=== PATIENT | male | born 1955 | race Two or more races ===

== ENCOUNTER 2016-10-01 19:03 | Emergency (ER) | payer SELFPAY ==
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
[2016-10-01] MEDS ORDERED: HYDROCODONE/ACETAMINOPHEN 5-325 MG 6 TAB/DSPK PO PRN (22:41)
[2016-10-02 00:53] VITALS: BP 122/73
== END 2016-10-01 23:55 | disposition home or self-care (01) ==
LOC: ER 19:03
DX: M54.2 Cervicalgia (principal); M79.641 Pain in right hand; R07.9 Chest pain, unspecified; M25.561 Pain in right knee; F17.200 Nicotine dependence, unspecified, uncomplicated; I10 Essential (primary) hypertension; J44.9 Chronic obstructive pulmonary disease, unspecified
CPT/HCPCS: 99283

== ENCOUNTER 2016-10-14 12:51 | Emergency (ER) | payer SELFPAY ==
--- NOTE | 2016-10-14 13:21 | ER Document Report ---
ED Medical Screen (RME) - General Chief Complaint: Leg Swelling Stated Complaint: RIGHT LEG SWELLING Time seen by provider: 13:10 Mode of Arrival: Wheelchair Information source: Patient Notes: 60-year-old male presents to ED for pain in both legs and back states he was seen 15 days ago and now both legs are swollen. Both legs have been swollen right larger than left since Thursday. Denies cardiac history or any history of DVTs. States his pain is a 5 out of 5. Right leg pain and as he walks it hurts his back. Discussed symptoms with Dr. Hernandes and will order a Doppler and blood work. Interperter [id number] I have greeted and performed a rapid initial assessment of this patient. A comprehensive ED assessment and evaluation of the patient, analysis of test results and completion of medical decision making process will be conducted by an additional ED providers. TRAVEL OUTSIDE OF THE [place] IN LAST 30 DAYS: No - Related Data Allergies/Adverse Reactions: No Known Allergies Allergy (Verified 12/12/14 15:46) Past Medical History - Past Medical History Cardiac Medical History: Reports: Hx Hypertension Pulmonary Medical History: Reports: Hx COPD Denies: Hx Tuberculosis Neurological Medical History: Denies: Hx Cerebrovascular Accident, Hx Seizures Renal/ Medical History: Denies: Hx Peritoneal Dialysis Past Surgical History: Reports: Hx Appendectomy, Hx Bowel Surgery - tortion, Hx Testicular Surgery - torsion - Immunizations Hx Diphtheria, Pertussis, Tetanus Vaccination: Yes - 12/15/14 Physical Exam - Vital signs Vitals: Temp Pulse Resp BP Pulse Ox 97.7 F 98 20 122/77 96 10/14/16 13:04 10/14/16 13:04 10/14/16 13:04 10/14/16 13:04 10/14/16 13:04 Course - Vital Signs Vital signs: Temp Pulse Resp BP Pulse Ox 97.7 F 98 20 122/77 96 10/14/16 13:04 10/14/16 13:04 10/14/16 13:04 10/14/16 13:04 10/14/16 13:04
[2016-10-14 14:05] LABS: ABSOLUTE EOSINOPHILS # (AUTO) 0.1 10^3/uL (0.0-0.6); ABSOLUTE LYMPHOCYTES (AUTO) 1.6 10^3/uL (0.5-4.7); ABSOLUTE MONOCYTES (AUTO) 0.9 10^3/uL (0.1-1.4); ABSOLUTE NEUT (AUTO) 4.3 10^3/uL (1.7-8.2); BASOPHILS % (AUTO) 0.3 % (0-2); HEMATOCRIT 36.7 % (37.9-51.0); HEMOGLOBIN 12.1 g/dL (13.5-17.0); HGB HCT DIFFERENCE -0.4; LYMPHOCYTES % (AUTO) 22.5 % (13-45); MEAN CORPUSCULAR HEMOGLOBIN 30.2 pg (27.0-33.4); MEAN CORPUSCULAR HGB CONC 32.8 g/dL (32.0-36.0); MEAN CORPUSCULAR VOLUME 92 fl (80-97); RED BLOOD COUNT 3.99 10^6/uL (4.35-5.55); RED CELL DISTRIBUTION WIDTH 14.7 % (11.5-14.0); SEGMENTED NEUTROPHILS % (AUTO) 62.2 % (42-78)
[2016-10-14 14:13] LABS: PROTHROMBIN TIME 13.4 SEC (11.4-15.4)
[2016-10-14 14:27] LABS: ALANINE AMINOTRANSFERASE 31 U/L (21-72); ALBUMIN 4.1 g/dL (3.5-5.0); ALKALINE PHOSPHATASE 103 U/L (38-126); ANION GAP 11 (5-19); ASPARTATE AMINO TRANSFERASE 42 U/L (17-59); BILIRUBIN,TOTAL 0.7 mg/dL (0.2-1.3); BLOOD UREA NITROGEN 4 mg/dL (7-20); CALCIUM 9.2 mg/dL (8.4-10.2); CARBON DIOXIDE 26 mmol/L (22-30); CHLORIDE 95 mmol/L (98-107); CREATININE RESULT 0.64 mg/dL (0.52-1.25); GLUCOSE 80 mg/dL (75-110); POTASSIUM 3.5 mmol/L (3.6-5.0); SODIUM 132.3 mmol/L (137-145); TOTAL PROTEIN 6.8 g/dL (6.3-8.2)
--- NOTE | 2016-10-14 15:36 | ER Document Report ---
ED General - General Mode of Arrival: Wheelchair Information source: Patient TRAVEL OUTSIDE OF THE [place] IN LAST 30 DAYS: No - HPI Onset: Other - see narrative <JUSTIN BLACK - Last Filed: 10/14/16 18:44> <RUSSELL MAX - Last Filed: 10/14/16 18:51> - General Chief Complaint: Foot Pain Stated Complaint: RIGHT LEG SWELLING Notes: Patient is a 60 year old Wallisian speaking male that is being translated by Monica that presents to the emergency department today with complaints of knee pain bilaterally and low back pain. Patient states he also has had lower extremity swelling. Patient adds that he is homeless. Patient states that he is from [place]. Patient states he was living in a homeless usp however they will not let him return when he gets off work because it is too late in the day and they close the doors. Patient states his low back pain radiates down his right leg past his knee. Patient states he is on his feet a lot during the day at work and he noticed that his swelling gets worse after being on his feet for extended periods of time. Patient states he has had the above mentioned symptoms for 15 days. (JUSTIN BLACK) - Related Data Allergies/Adverse Reactions: No Known Allergies Allergy (Verified 10/14/16 13:20) Past Medical History - General Information source: Patient - Social History Smoking Status: Current Every Day Smoker Cigarette use (# per day): Yes Frequency of alcohol use: Heavy Drug Abuse: None Lives with: Family Family History: Reviewed & Not Pertinent Patient has suicidal ideation: No Patient has homicidal ideation: No - Past Medical History Cardiac Medical History: Reports: Hx Hypertension Pulmonary Medical History: Reports: Hx COPD Past Surgical History: Reports: Hx Appendectomy, Hx Bowel Surgery - torsion, Hx Testicular Surgery - torsion - Immunizations Hx Diphtheria, Pertussis, Tetanus Vaccination: Yes - 12/15/14 <JUSTIN BLACK - Last Filed: 10/14/16 18:44> Review of Systems - Review of Systems Constitutional: No symptoms reported EENT: No symptoms reported Cardiovascular: No symptoms reported Respiratory: No symptoms reported Gastrointestinal: No symptoms reported Genitourinary: No symptoms reported Male Genitourinary: No symptoms reported Musculoskeletal: See HPI, Back pain, Joint pain - Knee, R>L Skin: No symptoms reported Hematologic/Lymphatic: No symptoms reported Neurological/Psychological: No symptoms reported -: Yes All other systems reviewed and negative <JUSTIN BLACK - Last Filed: 10/14/16 18:44> Physical Exam - General General appearance: Alert, Other - Disheveled, unkempt, smells of tobacco smoke - HEENT Head: Normocephalic, Atraumatic Eyes: Normal Conjunctiva: Normal Extraocular movements intact: Yes - Respiratory Respiratory status: No respiratory distress Breath sounds: Normal - Cardiovascular Rhythm: Regular Heart sounds: Normal auscultation Murmur: No - Abdominal Inspection: Normal Distension: No distension Tenderness: Nontender - Back Back: Normal, Nontender - Extremities General upper extremity: Normal inspection, Nontender, Normal ROM General lower extremity: Edema - bilaterally, Normal ROM - Neurological Neuro grossly intact: Yes Cognition: Normal Speech: Normal - Psychological Associated symptoms: Normal affect, Normal mood - Skin Skin Temperature: Warm Skin Moisture: Dry Skin Color: Normal <JUSTIN BLACK - Last Filed: 10/14/16 18:44> Course - Laboratory Result Diagrams: 10/14/16 13:35 10/14/16 13:35 <JUSTIN BLACK - Last Filed: 10/14/16 18:44> - Laboratory Result Diagrams: 10/14/16 13:35 10/14/16 13:35 <RUSSELL MAX - Last Filed: 10/14/16 18:51> - Vital Signs Vital signs: Temp Pulse Resp BP Pulse Ox 97.7 F 98 20 122/77 96 10/14/16 13:04 10/14/16 13:04 10/14/16 13:04 10/14/16 13:04 10/14/16 13:04 (JUSTIN BLACK) (RUSSELL MAX) - Laboratory Laboratory results interpreted by me: 10/14/16 10/14/16 13:35 13:35 RBC 3.99 L Hgb 12.1 L Hct 36.7 L RDW 14.7 H Sodium 132.3 L Potassium 3.5 L Chloride 95 L BUN 4 L (JUSTIN BLACK) (RUSSELL MAX) Discharge <JUSTIN BLACK - Last Filed: 10/14/16 18:44> <RUSSELL MAX - Last Filed: 10/14/16 18:51> - Discharge Clinical Impression: Lower extremity edema Qualifiers: Laterality: bilateral Qualified Code(s): R60.0 - Localized edema Condition: Stable Disposition: HOME, SELF-CARE Additional Instructions: Edema, Peripheral You have swelling in your legs. This is called peripheral edema. It can be caused by "leaky capillaries," inflammation, disease of the leg veins, or excess salt and water in your body. Edema may be a sign of heart, kidney, or liver disease. A medical evaluation can determine if there is a serious underlying cause for your edema. Avoid prolonged standing. If you must sit for a long time, occasionally get up and walk around or elevate your legs. Support stockings can be helpful in limiting swelling. Often diuretic or water pills are used to remove excess salt and water from your body. Call the doctor or return if you develop increased swelling, pain, or redness, shortness of breath, chest pain, or any other significant change. Referrals: [facility] [Provider Group] - Follow up in 3-5 days (in 2-3 days return to er sooner for increasing worsening or new symptoms) Print Language: Wallisian Scribe Documentation - Scribe Written by Sean:: Sean Carlos, 1839 10/14/16 acting as scribe for :: David <JUSTIN BLACK - Last Filed: 10/14/16 18:44>
--- NOTE | 2016-10-14 16:48 | XCELERA REPORT ---
[address] [address] Lower Extremity Venous Evaluation Name: DANIELE RAMIREZ Age: 60 yrs Gender: Male : 1955 Patient Status: Preadmit Patient Location: ER Study Date: 10/14/2016 02:40 PM Procedure: Color flow and duplex imaging bilaterally of the veins of the lower extremities as well as the Common Femoral veins. Reason For Study: swelling both legs right greater than left Ordering Physician: KENYATTA RIVERA Performed By: Brandi Awad Right Sided Venous Evaluation Normal vessel filling wall to wall, compression and augmentation as well as Colour flow down to the infrageniculate veins. Left Sided Venous Evaluation Normal vessel filling wall to wall, compression and augmentation as well as Colour flow down to the infrageniculate veins. Critical Findings Called in to the ER at about 1700. Interpretation Summary No duplex evidence of DVT or obstruction in the bilateral lower extremities. : KENYATTA RIVERA > Terrell Mcrae
[2016-10-14 19:42] VITALS: BP 133/74
== END 2016-10-14 19:33 | disposition home or self-care (01) ==
LOC: ER 12:51
DX: R60.0 Localized edema (principal); M25.561 Pain in right knee; M25.562 Pain in left knee; M54.5 Low back pain; I10 Essential (primary) hypertension; J44.9 Chronic obstructive pulmonary disease, unspecified; F17.210 Nicotine dependence, cigarettes, uncomplicated; Z59.0 Homelessness
CPT/HCPCS: 36415; 71010; 80053; 83880; 85025; 85610; 85730; 93970; 99283

== ENCOUNTER 2016-10-17 10:32 | Emergency (ER) | payer SELFPAY ==
--- NOTE | 2016-10-17 10:54 | ER Document Report ---
ED Medical Screen (RME) - General Stated Complaint: LEG PAIN Time seen by provider: 10:52 Mode of Arrival: Wheelchair Information source: Patient Notes: 60-year-old male presents to ED for erythema to both lower legs. I have greeted and performed a rapid initial assessment of this patient. A comprehensive ED assessment and evaluation of the patient, analysis of test results and completion of medical decision making process will be conducted by an additional ED providers. TRAVEL OUTSIDE OF THE [place] IN LAST 30 DAYS: No - Related Data Allergies/Adverse Reactions: No Known Allergies Allergy (Verified 10/17/16 10:52) Past Medical History - Past Medical History Cardiac Medical History: Reports: Hx Hypertension Pulmonary Medical History: Reports: Hx COPD Denies: Hx Tuberculosis Neurological Medical History: Denies: Hx Cerebrovascular Accident, Hx Seizures Renal/ Medical History: Denies: Hx Peritoneal Dialysis Past Surgical History: Reports: Hx Appendectomy, Hx Bowel Surgery - torsion, Hx Testicular Surgery - torsion - Immunizations Hx Diphtheria, Pertussis, Tetanus Vaccination: Yes - 12/15/14
[2016-10-17 11:22] LABS: ABSOLUTE EOSINOPHILS # (AUTO) 0.2 10^3/uL (0.0-0.6); ABSOLUTE LYMPHOCYTES (AUTO) 1.8 10^3/uL (0.5-4.7); ABSOLUTE MONOCYTES (AUTO) 0.8 10^3/uL (0.1-1.4); ABSOLUTE NEUT (AUTO) 2.9 10^3/uL (1.7-8.2); BASOPHILS % (AUTO) 0.5 % (0-2); EOSINOPHILS % (AUTO) 3.6 % (0-6); HEMATOCRIT 38.5 % (37.9-51.0); HEMOGLOBIN 12.5 g/dL (13.5-17.0); LYMPHOCYTES % (AUTO) 31.6 % (13-45); MEAN CORPUSCULAR HEMOGLOBIN 30.3 pg (27.0-33.4); MEAN CORPUSCULAR HGB CONC 32.5 g/dL (32.0-36.0); MEAN CORPUSCULAR VOLUME 93 fl (80-97); RED BLOOD COUNT 4.13 10^6/uL (4.35-5.55); RED CELL DISTRIBUTION WIDTH 15.3 % (11.5-14.0); SEGMENTED NEUTROPHILS % (AUTO) 50.3 % (42-78); WHITE BLOOD COUNT 5.8 10^3/uL (4.0-10.5)
[2016-10-17 11:47] LABS: ALANINE AMINOTRANSFERASE 25 U/L (21-72); ALBUMIN 3.8 g/dL (3.5-5.0); ALKALINE PHOSPHATASE 96 U/L (38-126); ANION GAP 11 (5-19); ASPARTATE AMINO TRANSFERASE 29 U/L (17-59); BILIRUBIN,TOTAL 0.6 mg/dL (0.2-1.3); BLOOD UREA NITROGEN 5 mg/dL (7-20); CALCIUM 9.5 mg/dL (8.4-10.2); CARBON DIOXIDE 29 mmol/L (22-30); CHLORIDE 97 mmol/L (98-107); CREATININE RESULT 0.75 mg/dL (0.52-1.25); GLUCOSE 79 mg/dL (75-110); LIPASE 89.9 U/L (23-300); POTASSIUM 4.1 mmol/L (3.6-5.0); SODIUM 136.6 mmol/L (137-145); TOTAL PROTEIN 7.1 g/dL (6.3-8.2)
[2016-10-17] MEDS ORDERED: HYDROCHLOROTHIAZIDE 25 MG TABLET PO ONE (13:05)
--- NOTE | 2016-10-17 13:12 | ER Document Report ---
ED General - General Chief Complaint: Leg Pain Stated Complaint: LEG PAIN Mode of Arrival: Wheelchair Information source: Patient TRAVEL OUTSIDE OF THE [place] IN LAST 30 DAYS: No - Related Data Allergies/Adverse Reactions: No Known Allergies Allergy (Verified 10/17/16 10:52) Past Medical History - General Information source: Patient - Social History Smoking Status: Current Every Day Smoker Chew tobacco use (# tins/day): No Frequency of alcohol use: None Drug Abuse: None Family History: Reviewed & Not Pertinent Patient has suicidal ideation: No Patient has homicidal ideation: No - Past Medical History Cardiac Medical History: Reports: Hx Hypertension Pulmonary Medical History: Reports: Hx COPD Denies: Hx Tuberculosis Neurological Medical History: Denies: Hx Cerebrovascular Accident, Hx Seizures Renal/ Medical History: Denies: Hx Peritoneal Dialysis Past Surgical History: Reports: Hx Appendectomy, Hx Bowel Surgery - torsion, Hx Testicular Surgery - torsion - Immunizations Hx Diphtheria, Pertussis, Tetanus Vaccination: Yes - 12/15/14 Review of Systems - Review of Systems Constitutional: No symptoms reported EENT: No symptoms reported Cardiovascular: Edema Respiratory: No symptoms reported. denies: Short of breath Gastrointestinal: No symptoms reported Genitourinary: No symptoms reported Musculoskeletal: No symptoms reported Skin: No symptoms reported Neurological/Psychological: No symptoms reported Physical Exam - Vital signs Vitals: Temp Pulse Resp BP Pulse Ox 97.8 F 79 18 137/78 H 98 10/17/16 10:51 10/17/16 10:51 10/17/16 10:51 10/17/16 10:51 10/17/16 10:51 Interpretation: Normal - General General appearance: Appears well, Alert In distress: None - HEENT Head: Normocephalic Eyes: Normal Conjunctiva: Normal - Respiratory Respiratory status: No respiratory distress Breath sounds: Normal. No: Rales - Cardiovascular Rhythm: Regular - Abdominal Inspection: Normal Distension: No distension - Back Back: Normal - Extremities General upper extremity: Normal inspection General lower extremity: Edema - 1+, BILATERAL, Normal temperature, Normal weight bearing, Other - NO OPEN WOUNDS. No: Normal inspection - Neurological Neuro grossly intact: Yes Cognition: Normal Orientation: AAOx4 - Psychological Associated symptoms: Normal affect, Normal mood - Skin Skin Temperature: Warm Skin Moisture: Dry Skin Color: Normal Skin Turgor: Elastic Course - Vital Signs Vital signs: Temp Pulse Resp BP Pulse Ox 97.9 F 87 18 115/63 97 10/17/16 13:24 10/17/16 13:24 10/17/16 10:51 10/17/16 13:24 10/17/16 13:24 - Laboratory Result Diagrams: 10/17/16 10:55 10/17/16 10:55 Laboratory results interpreted by me: 10/17/16 10/17/16 10:55 10:55 RBC 4.13 L Hgb 12.5 L RDW 15.3 H Monocytes % 14.0 H Sodium 136.6 L Chloride 97 L BUN 5 L Discharge - Discharge Clinical Impression: Edema Qualifiers: Edema type: localized Qualified Code(s): R60.0 - Localized edema Condition: Stable Disposition: HOME, SELF-CARE Instructions: Dependent Edema ([facility]) Additional Instructions: Your evaluation today in the emergency department shows that you have edema, or swelling, of the legs. There is no evidence of an underlying heart, liver, or kidney problem. You should avoid all salt in your diet. You should avoid prolonged sitting or standing. WHEN YOU ARE SITTING OR LYING DOWN, TRY TO ELEVATE YOUR LEGS ABOVE THE LEVEL OF YOUR HEART. This will help gravity drain the fluid out of the legs. Follow[facility]up with [facility] as scheduled. Referrals: [facility] [Provider Group] - Follow up as needed Print Language: Syriac
[2016-10-17 13:25] VITALS: BP 115/63
== END 2016-10-17 13:26 | disposition home or self-care (01) ==
LOC: ER 10:32
DX: R60.0 Localized edema (principal); F17.200 Nicotine dependence, unspecified, uncomplicated; I10 Essential (primary) hypertension; J44.9 Chronic obstructive pulmonary disease, unspecified
CPT/HCPCS: 36415; 80053; 83690; 85025; 99283

== ENCOUNTER 2017-02-18 12:13 | Emergency (ER) | payer SELFPAY ==
[2017-02-18] MEDS ORDERED: MORPHINE SULFATE 10 MG/ML INJ IM ONE (12:44)
--- NOTE | 2017-02-18 12:50 | ER Document Report ---
ED Neck/Back Problem - General Chief Complaint: Low Back Pain Stated Complaint: BACK PAIN Time Seen by Provider: 02/18/17 12:37 Notes: 61 yo male c/o low back back radiating down right leg x 5 days. pt has hx/o chronic low back pain with sciatica. this pain is familiar to patient in location but more severe in intensity. denies fever, bowel/bladder change, paresthesias. no recent injury. no abdominal pain, n/v, chest pain or shortness of breath TRAVEL OUTSIDE OF THE [place] IN LAST 30 DAYS: No - HPI Patient complains to provider of: Pain Onset: Chronic Timing: Constant Quality of pain: Burning, Sharp Pain Level: 5 Recent injury: No Associated symptoms: Like prior neck/back pain, Radiation to leg - right. denies: Chest pain, Abdominal pain, Fever, Incontinence, Motor loss, Unable to urinate Exacerbated by: Other - any movement Relieved by: Nothing Similar symptoms previously: Yes Recently seen / treated by doctor: No - Related Data Allergies/Adverse Reactions: No Known Allergies Allergy (Verified 10/17/16 10:52) Past Medical History - General Information source: Relative - daughter interpretting for patient - Social History Smoking Status: Current Every Day Smoker Smoking Education Provided: Yes - encouraged to quit Frequency of alcohol use: None Drug Abuse: None Lives with: Family Family History: Reviewed & Not Pertinent Patient has suicidal ideation: No Patient has homicidal ideation: No - Past Medical History Cardiac Medical History: Reports: Hx Hypertension Pulmonary Medical History: Reports: Hx COPD Denies: Hx Tuberculosis Neurological Medical History: Denies: Hx Cerebrovascular Accident, Hx Seizures Renal/ Medical History: Denies: Hx Peritoneal Dialysis Past Surgical History: Reports: Hx Appendectomy, Hx Bowel Surgery - torsion, Hx Testicular Surgery - torsion - Immunizations Hx Diphtheria, Pertussis, Tetanus Vaccination: Yes - 12/15/14 Review of Systems - Review of Systems Constitutional: No symptoms reported EENT: No symptoms reported Cardiovascular: No symptoms reported Respiratory: No symptoms reported Gastrointestinal: No symptoms reported Genitourinary: No symptoms reported Male Genitourinary: No symptoms reported Musculoskeletal: See HPI Skin: No symptoms reported Hematologic/Lymphatic: No symptoms reported Neurological/Psychological: No symptoms reported Physical Exam - Vital signs Vitals: Temp Pulse Resp BP Pulse Ox 97.5 F 85 16 130/82 H 97 02/18/17 12:28 02/18/17 12:28 02/18/17 12:28 02/18/17 12:28 02/18/17 12:28 Interpretation: Normal - General General appearance: Alert In distress: Moderate - HEENT Head: Normocephalic, Atraumatic Eyes: Normal Pupils: PERRL - Respiratory Respiratory status: No respiratory distress Chest status: Nontender Breath sounds: Normal Chest palpation: Normal - Cardiovascular Rhythm: Regular Heart sounds: Normal auscultation Murmur: No - Abdominal Inspection: Normal Distension: No distension Bowel sounds: Normal Tenderness: Nontender Organomegaly: No organomegaly - Back Back: Tender - + lumbar spinal and paraspinal tenderness. + right SI tenderness. + right SLT - Extremities General upper extremity: Normal inspection, Nontender, Normal color, Normal ROM , Normal temperature General lower extremity: Normal color, Normal temperature - Neurological Neuro grossly intact: Yes Cognition: Normal Orientation: AAOx4 Edilia Coma Scale Eye Opening: Spontaneous [place] Coma Scale Verbal: Oriented [place] Coma Scale Motor: Obeys Commands [place] Coma Scale Total: 15 Speech: Normal Motor strength normal: LUE, RUE, LLE, RLE Sensory: Normal - Psychological Associated symptoms: Normal affect, Normal mood - Skin Skin Temperature: Warm Skin Moisture: Dry Skin Color: Normal Course - Re-evaluation Re-evalutation: 02/18/17 12:51 pt evaluated. very uncomfortable but no neurologic symptoms, low suspicion for cauda equina or epidural abscess. no abdominal pain. no imaging indicated at this time. will medicate for pain and re-evaluate 02/18/17 13:31 pt improved after medications. able to move without assistance. pt stable for discharge - Vital Signs Vital signs: Temp Pulse Resp BP Pulse Ox 97.5 F 85 16 130/82 H 97 02/18/17 12:28 02/18/17 12:28 02/18/17 12:28 02/18/17 12:28 02/18/17 12:28 Discharge - Discharge Clinical Impression: Back pain with sciatica Condition: Stable Disposition: ADMITTED INPATIENT Instructions: Low Back Pain ([facility]), Ice Packs ([facility]), Oral Narcotic Medication ( [facility]), Pain Medication Injection ([facility]), Sciatica ([facility]) Additional Instructions: You have been treated with narcotic and anti-inflammatory medications for your back pain with sciatica Please take medications as prescribed Follow up with your primary care for further evaluation and treatment Prescriptions: Ibuprofen [Motrin 800 Mg Tablet] 800 mg PO Q6H #30 tablet Oxycodone HCl/Acetaminophen [Percocet 10-325 Mg Tablet] 1 each PO Q4H #25 tablet
[2017-02-18] MEDS ORDERED: KETOROLAC TROMETHAMINE 60 MG/2 ML SDV IM ONE (12:56)
[2017-02-18 13:47] VITALS: BP 126/65
== END 2017-02-18 13:47 | disposition home or self-care (01) ==
LOC: ER 12:13
DX: G89.29 Other chronic pain (principal); M54.40 Lumbago with sciatica, unspecified side; I10 Essential (primary) hypertension; J44.9 Chronic obstructive pulmonary disease, unspecified; F17.200 Nicotine dependence, unspecified, uncomplicated; Z71.6 Tobacco abuse counseling
CPT/HCPCS: 99284; 96372; J1885; J2270

== ENCOUNTER 2017-04-17 18:37 | Emergency (ER) | payer SELFPAY ==
[2017-04-17] MEDS ORDERED: EPINEPHRINE INJ/PF 1 MG/1 ML AMPULE ONE ×2 (18:50→18:53)
[2017-04-17] MEDS ORDERED: NORMAL SALINE 1000 ML 1,000 ML IV ONE (18:53)
[2017-04-17] MEDS ORDERED: METHYLPREDNISOLONE INJ 125 MG/2 ML SDV IV ONE (18:53)
[2017-04-17] MEDS ORDERED: ALBUTEROL SULFATE 0.083% NEB 2.5 MG/3 ML AMPUL NEB ONE (18:53)
[2017-04-17] MEDS ORDERED: DIPHENHYDRAMINE HCL 50 MG/ML VIAL ONE (18:54)
[2017-04-17] MEDS ORDERED: FAMOTIDINE INJ/PF 20 MG/2 ML SDV IV ONE ×2 (18:54→18:55)
[2017-04-17] MEDS ORDERED: DIPHENHYDRAMINE HCL 50 MG/ML VIAL IV ONE (18:54)
[2017-04-17] MEDS ORDERED: EPINEPHRINE INJ/PF 1 MG/1 ML AMPULE IM ONE (18:55)
[2017-04-17] MEDS ORDERED: METHYLPREDNISOLONE INJ 40 MG/1 ML SDV ONE (18:55)
[2017-04-17] MEDS ORDERED: ALBUTEROL SULFATE 0.042% NEB (1.25 MG/3 ML) AMPUL NEB ONE (18:56)
[2017-04-17] MEDS ORDERED: METHYLPREDNISOLONE INJ 125 MG/2 ML SDV ONE (18:56)
--- NOTE | 2017-04-17 18:56 | ER Document Report ---
ED General - General Chief Complaint: Bee Sting Stated Complaint: POSSIBLE ALLERGIC REACTION Time Seen by Provider: 04/17/17 18:53 Cannot obtain history due to: Unstable vital signs Notes: Patient is a 61-year-old male without past medical history, active smoker who presents after being stung by a bee and developing facial swelling, shortness of breath and nausea. He denies any history of similar episodes in the past. He has never required hospitalization or epinephrine in the past. The symptoms started almost immediately after being bitten by a bee while working outside. Patient arrives in severe respiratory distress and history is subsequently limited. The history and physical exam was obtained by the provider using Turkish. A formal hospital vulcan crewmember was offered to the patient and any family at the bedside at the beginning of the encounter and was declined. TRAVEL OUTSIDE OF THE [place] IN LAST 30 DAYS: No - Related Data Allergies/Adverse Reactions: No Known Allergies Allergy (Verified 10/17/16 10:52) Past Medical History - General Information source: Patient, Friend - Social History Smoking Status: Current Every Day Smoker Frequency of alcohol use: None Drug Abuse: None Lives with: Friend Family History: Reviewed & Not Pertinent - Past Medical History Cardiac Medical History: Reports: Hx Hypertension Pulmonary Medical History: Reports: Hx COPD Denies: Hx Tuberculosis Neurological Medical History: Denies: Hx Cerebrovascular Accident, Hx Seizures Renal/ Medical History: Denies: Hx Peritoneal Dialysis Past Surgical History: Reports: Hx Appendectomy, Hx Bowel Surgery - torsion, Hx Testicular Surgery - torsion - Immunizations Hx Diphtheria, Pertussis, Tetanus Vaccination: Yes - 12/15/14 Review of Systems - Review of Systems Notes: Constitutional: Negative for fever. HENT: Negative for sore throat. Eyes: Negative for visual changes. Cardiovascular: Negative for chest pain. Respiratory: Positive for shortness of breath. Gastrointestinal: Negative for abdominal pain, vomiting or diarrhea. Genitourinary: Negative for dysuria. Musculoskeletal: Negative for back pain. Skin: Negative for rash. Neurological: Negative for headaches, weakness or numbness. 10 point ROS negative except as marked above and in HPI. Physical Exam - Vital signs Vitals: Pulse Resp BP Pulse Ox 126 H 28 H 110/52 L 87 L 04/17/17 18:38 04/17/17 18:38 04/17/17 18:38 04/17/17 18:38 Interpretation: Tachycardic, Hypoxic, Tachypneic Notes: PHYSICAL EXAMINATION: GENERAL: Appears to be in significant respiratory distress, clutching at his throat HEAD: Atraumatic, normocephalic. EYES: Pupils equal round and reactive to light, extraocular movements intact, sclera anicteric, conjunctiva are normal. ENT: nares patent, oropharynx clear without exudates. Moist mucous membranes. Stridor present NECK: Normal range of motion, supple without lymphadenopathy LUNGS: Very poor air movement bilaterally, diffuse wheezing in all lung sharma HEART: Regular tachycardia without murmurs ABDOMEN: Soft, nontender, normoactive bowel sounds. No guarding, no rebound. No masses appreciated. EXTREMITIES: Normal range of motion, no pitting or edema. No cyanosis. NEUROLOGICAL: No focal neurological deficits. Moves all extremities spontaneously and on command. PSYCH: Appropriately anxious SKIN: Warm, Dry, normal turgor, scattered urticaria Course - Re-evaluation Re-evalutation: 04/17/17 18:55 Patient presents in severe respiratory distress, stridulous, wheezing, saturating 83% on room air, after being stung by a bee. He has never had such a serious reaction to a bee sting in the past. I went to assess the patient immediately upon arriving into the trauma bay. 0.5 mg of intramuscular epinephrine was immediately administered. IV access was established. IV Benadryl, Solu-Medrol, famotidine all were administered. An epinephrine drip has been prepared. He is in place on nasal cannula oxygen and a continuous albuterol nebulizer will be started. Patient is critically ill at this time and high risk for decompensation. 04/17/17 19:16 I remained at the patient's bedside for 25 minutes, titrating a epinephrine infusion until patient respiratory distress completely resolved. I have been able to titrate the patient off oxygen at this time. He is now without any further stridor although remains with mild wheezing which apparently he does have a baseline secondary to COPD and active tobacco use. His blood pressure has also normalized. Heart rate is at 62 at this time. He is continuing on nebulizer at this time. I will continue to monitor closely although the epinephrine drip has been discontinued at this time. 04/17/17 20:44 Patient has maintained well off the epinephrine infusion now for 90 minutes without any return of symptoms. Lung sounds remain clear. Vitals are normal. Patient will be discharged with a prescription for epinephrine. At this time will discharge with return precautions and follow-up recommendations. Verbal discharge instructions given a the bedside and opportunity for questions given. Medication warnings reviewed. Patient is in agreement with this plan and has verbalized understanding of return precautions and the need for primary care follow-up in the next 24-72 hours. - Vital Signs Vital signs: Temp Pulse Resp BP Pulse Ox 97.9 F 126 H 20 115/53 L 96 04/17/17 20:55 04/17/17 18:38 04/17/17 20:51 04/17/17 20:51 04/17/17 20:51 - Diagnostic Test Radiology reviewed: Image reviewed, Reports reviewed Radiology results interpreted by me: 04/18/17 03:09 Chest x-ray: No acute infiltrate or pneumothorax Critical Care Note - Critical Care Note Total time excluding time spent on procedures (mins): 45 Comments: Critical care time spent obtaining history from patient or surrogate, discussions with consultants, development of treatment plan with patient or surrogate, evaluation of patient's response to treatment, examination of patient , ordering and performing treatments and interventions, ordering and review of laboratory studies, re-evaluation of patient's condition, ordering and review of radiographic studies and review of old charts Discharge - Discharge Clinical Impression: Respiratory distress Anaphylaxis Qualifiers: Encounter type: initial encounter Qualified Code(s): T78.2XXA - Anaphylactic shock, unspecified, initial encounter Condition: Good Disposition: HOME, SELF-CARE Additional Instructions: IF YOU DEVELOP DIFFICULTY BREATHING, RETURN OF HIVES, VOMITING, LIGHTHEADEDNESS , GIVE YOURSELF THE EPINEPHRINE SHOT IMMEDIATELY AND CALL 911. NEVER HESITATE TO GIVE YOURSELF THE EPINEPHRINE THIS CAN SAVE YOUR LIFE IF YOU ARE HAVE A SERIOUS ALLERGIC REACTION. Please also follow-up with your primary care doctor for consideration of allergy testing. Prescriptions: Epinephrine [Epipen 2-Freddy] 0.3 mg IM ONCE PRN #1 packet PRN Reason:
--- NOTE | 2017-04-17 19:14 | RADIOLOGY REPORT (SQ) ---
EXAM DESCRIPTION: CHEST SINGLE VIEW COMPLETED DATE/TIME: 04/17/2017 7:03 pm REASON FOR STUDY: sob COMPARISON: 10/14/2016 NUMBER OF VIEWS: One view. TECHNIQUE: Single frontal radiographic view of the chest acquired. LIMITATIONS: None. FINDINGS: LUNGS AND PLEURA: No opacities, masses or pneumothorax. No pleural effusion. Attenuated bl ood vessels and flattened dillan-diaphragms. MEDIASTINUM AND HILAR STRUCTURES: No masses. Contour normal. HEART AND VASCULAR STRUCTURES: Heart normal in size. Normal vasculature. BONES: No acute findings. HARDWARE: None in the chest. OTHER: No other significant finding. IMPRESSION: COPD. NO ACUTE RADIOGRAPHIC FINDING IN THE CHEST OR SIGNIFICANT CHANGE FROM PRIOR STUDY . TECHNICAL DOCUMENTATION: JOB ID: [id number] [employer]- All Rights Reserved
[2017-04-17 20:59] VITALS: BP 115/53
== END 2017-04-17 21:00 | disposition home or self-care (01) ==
LOC: ER 18:37
DX: T63.441A Toxic effect of venom of bees, accidental (unintentional), initial encounter (principal); R22.0 Localized swelling, mass and lump, head; R11.0 Nausea; L50.9 Urticaria, unspecified; R06.02 Shortness of breath; R09.02 Hypoxemia; R00.0 Tachycardia, unspecified; J44.9 Chronic obstructive pulmonary disease, unspecified; I10 Essential (primary) hypertension; F17.200 Nicotine dependence, unspecified, uncomplicated
CPT/HCPCS: 94640; 99284; 96372; 96361; 96374; 96375; 71010; J1200; J0171; J2930; J7030; S0028

== ENCOUNTER 2018-10-29 14:05 | Emergency (ER) | payer SELFPAY ==
[2018-10-29 14:54] VITALS: BP 130/66
[2018-10-29] MEDS ORDERED: KETOROLAC TROMETHAMINE 60 MG/2 ML SDV IM ONE (15:59)
[2018-10-29] MEDS ORDERED: LIDOCAINE 5% (700 MG) TRANSDERMAL ADH..PATCH TP ONE (15:59)
--- NOTE | 2018-10-29 16:02 | ER Document Report ---
HPI - HPI Patient complains to provider of: Low back pain Time Seen by Provider: 10/29/18 15:08 Onset: Last week Onset/Duration: Persistent Quality of pain: Sharp Pain Level: 4 Context: Patient complains of chronic back pain that worsened recently. Patient states pain radiates to the left lower extremity. Patient complains of pain in his left hip area. Patient denies any injury. Patient denies any fever. Patient does complain of numbness to the left leg area. Patient did walk here from his home which is about a block away. Associated Symptoms: Other - Low back pain, left leg pain. denies: Nonproductive cough, Fever Exacerbated by: Standing, Movement, Walking Relieved by: Denies Similar symptoms previously: No Recently seen / treated by doctor: No - ROS ROS below otherwise negative: Yes Systems Reviewed and Negative: Yes All other systems reviewed and negative - CONSTITUTIONAL Constitutional: DENIES: Fever, Chills - NEURO Neurology: DENIES: Headache, Weakness - CARDIOVASCULAR Cardiovascular: DENIES: Chest pain - GASTROINTESTINAL Gastrointestinal: DENIES: Nausea, Patient vomiting - URINARY Urinary: DENIES: Dysuria - MUSCULOSKELETAL Musculoskeletal: REPORTS: Extremity pain, Back Pain. DENIES: Neck Pain - DERM Skin Color: Normal Skin Problems: None Past Medical History - General Information source: Patient - Social History Smoking Status: Current Every Day Smoker Smoking Education Provided: Yes Frequency of alcohol use: None Drug Abuse: None Occupation: [employer] Lives with: Alone Family History: Reviewed & Not Pertinent Pulmonary Medical History: Reports: Hx COPD Denies: Hx Tuberculosis Neurological Medical History: Denies: Hx Cerebrovascular Accident, Hx Seizures Renal/ Medical History: Denies: Hx Peritoneal Dialysis Musculoskeletal Medical History: Reports Hx Arthritis, Reports Other - Sciatica Past Surgical History: Reports: Hx Appendectomy, Hx Bowel Surgery - torsion, Hx Testicular Surgery - torsion - Immunizations Hx Diphtheria, Pertussis, Tetanus Vaccination: Yes - 12/15/14 Vertical Provider Document - CONSTITUTIONAL Agree With Documented VS: Yes Exam Limitations: No Limitations General Appearance: WD/WN, No Apparent Distress - INFECTION CONTROL TRAVEL OUTSIDE OF THE [place] IN LAST 30 DAYS: No - HEENT HEENT: Atraumatic, Normocephalic - NECK Neck: Normal Inspection, Supple. negative: Lymphadenopathy-Left, Lymphadenopathy-Right - RESPIRATORY Respiratory: Breath Sounds Normal, No Respiratory Distress - CARDIOVASCULAR Cardiovascular: Regular Rate, Regular Rhythm, No Murmur - GI/ABDOMEN Gastrointestinal: Abdomen Soft, Abdomen Non-Tender, No Organomegaly Notes: Normal rectal tone, RN Radha as standby - BACK Back: Abnormal Inspection - Lower lumbar tenderness, left SI joint tenderness - MUSCULOSKELETAL/EXTREMETIES Musculoskeletal/Extremeties: Tender - Left hip tenderness. Notes: Patient unable or unwilling to cooperate with physical exam. Patient refuses to flex left hip or left knee. Patient denies any pain although states that flexing the knee aggravates the hip. Patient able to ambulate with a limping gait - NEURO Level of Consciousness: Awake, Alert, Appropriate Motor/Sensory: negative: Weak Motor Strength RUE, Weak Motor Strength LUE, Weak Motor Strength RLE, Weak Motor Strength LLE Notes: Patient unwilling to cooperate with deep tendon reflexes of the left lower extremity. Patient with 2+ right Achilles and patellar reflexes. Patient with normal rectal tone. - DERM Integumentary: Warm, Dry, No Rash Course - Re-evaluation Re-evalutation: 10/29/18 16:57 Patient seen ambulating to the bathroom without assistance or difficulty. 10/29/18 19:09 The patient presents with low back pain without signs of spinal cord compression, cauda equina syndrome, infection, aneurysm, or other serious etiology. Given the extremely risk of these diagnoses further testing and evaluation for these possibilities does not appear to be indicated at this time. Patient has been instructed to return if the symptoms worsen or change in any way. - Vital Signs Vital signs: Temp Pulse Resp BP Pulse Ox 98.0 F 71 16 130/66 H 96 10/29/18 14:53 10/29/18 14:53 10/29/18 14:53 10/29/18 14:53 10/29/18 14:53 - Diagnostic Test Radiology reviewed: Reports reviewed Discharge - Discharge Clinical Impression: Bulging discs Low back pain Qualifiers: Chronicity: unspecified Back pain laterality: left Sciatica presence: with sciatica Sciatica laterality: sciatica of left side Qualified Code(s): M54.42 - Lumbago with sciatica, left side Condition: Stable Disposition: HOME, SELF-CARE Instructions: Ice Packs ([facility]), Low Back Pain ([facility]), Oral Narcotic Medication ([facility]) Additional Instructions: Return immediately for any new or worsening symptoms Followup with your primary care provider, call tomorrow to make a followup appointment Follow-up with orthopedic doctor for further evaluation, call Thursday for an appointment Prescriptions: Cyclobenzaprine HCl [Flexeril 10 Mg Tablet] 10 mg PO TID #15 tablet Prednisone [Deltasone 20 mg Tablet] 3 tab PO DAILY 5 Days tablet Forms: Return to Work Referrals: [facility] [Provider Group] - 11/01/18 Print Language: Belgian
--- NOTE | 2018-10-29 16:43 | RADIOLOGY REPORT (SQ) ---
EXAM DESCRIPTION: HIP LEFT AP/LATERAL COMPLETED DATE/TIME: 10/29/2018 4:34 pm REASON FOR STUDY: low back, L hip/leg pain COMPARISON: None. NUMBER OF VIEWS: Two views. TECHNIQUE: AP pelvis and additional frog-leg view of the left hip. LIMITATIONS: None. FINDINGS: MINERALIZATION: Normal. LEFT HIP: No fracture or dislocation. No worrisome bone lesions. RIGHT HIP: No fracture or dislocation. No worrisome bone lesions. PUBIS AND ISCHIUM: No fracture. PELVIS: No fracture. SACRUM: No fracture or dislocation. No worrisome bone lesions. LOWER LUMBAR SPINE: Spondylosis. SOFT TISSUES: No findings. OTHER: No other significant finding. IMPRESSION: NO RADIOGRAPHIC EVIDENCE OF ACUTE INJURY. TECHNICAL DOCUMENTATION: JOB ID: [id number] [employer]- All Rights Reserved Reading location - IP/workstation name: [email or web address]
--- NOTE | 2018-10-29 16:45 | RADIOLOGY REPORT (SQ) ---
EXAM DESCRIPTION: L SPINE WHOLE COMPLETED DATE/TIME: 10/29/2018 4:34 pm REASON FOR STUDY: low back, L hip/leg pain COMPARISON: None. NUMBER OF VIEWS: Five views including obliques. TECHNIQUE: AP, lateral, oblique, and sacral radiographic images acquired of the lumbar spine. LIMITATIONS: None. FINDINGS: MINERALIZATION: Normal. SEGMENTATION: Normal. No transitional anatomy. ALIGNMENT: Normal. VERTEBRAE: Maintained height. No fracture or worrisome bone lesion. DISCS: Multilevel disc space narrowing with osteophytes. POSTERIOR ELEMENTS: Pedicles and facets are intact. No pars defect or posterior arch defects. Facet arthropathy is present. HARDWARE: None in the spine. PARASPINAL SOFT TISSUES: Normal. PELVIS: Intact as visualized. No fractures or worrisome bone lesions. SI joints intact. OTHER: No other significant finding. IMPRESSION: SPONDYLOSIS WITHOUT BONE LESION OR FRACTURE. TECHNICAL DOCUMENTATION: JOB ID: [id number] [employer]- All Rights Reserved Reading location - IP/workstation name: [email or web address]
--- NOTE | 2018-10-29 18:43 | RADIOLOGY REPORT (SQ) ---
EXAM DESCRIPTION: MRI LUMBAR SPINE WITHOUT COMPLETED DATE/TIME: 10/29/2018 6:10 pm REASON FOR STUDY: low back pain, numbness COMPARISON: L-spine radiographs 05/18/2019 TECHNIQUE: Sagittal and Axial imaging includes T1, T2, STIR and gradient echo sequences. Coronal T2/ HASTE imaging. LIMITATIONS: None. FINDINGS: VISUALIZED UPPER ABDOMEN: Limited evaluation. No acute or suspicious findings suggested. SEGMENTATION: No transitional anatomy. The lowest well-developed disc space is labeled L5-S1. ALIGNMENT: Anatomic. VERTEBRAE: Intact. BONE MARROW: Normal. No marrow replacement or reactive changes. DISC SIGNAL: Intervertebral disc desiccation and loss of height is seen at all levels. POSTERIOR ELEMENTS: Generally intact. No pars defect evident. HARDWARE: None in the spine. CORD AND CONUS: Normal in size and signal intensity. Conus at the appropriate level. SOFT TISSUES: No aortic aneurysm seen. No bulky retroperitoneal adenopathy or mass. No paraspinal mas s or fluid. L1-L2: No significant spinal stenosis or exit foraminal stenosis. L2-L3: Circumferential disc bulge with mild left and moderate right neural foraminal stenosis. The c entral canal remains patent. L3-L4: Circumferential disc bulge in the setting of facet arthropathy results in mild central canal n arrowing as well as mild left and moderate right neural foraminal stenosis. L4-L5: Circumferential disc bulge with central annular fissure in the setting of facet arthropathy re sults an mild central canal narrowing. Moderate right and severe left neural foraminal stenosis. L5-S1: Circumferential disc bulge with central annular fissure in the setting of facet arthropathy re sults in moderate central canal stenosis as well as severe bilateral neural foraminal stenosis. LOWER THORACIC: Incompletely imaged. No stenosis seen. SACRUM: Visualized upper sacrum intact. OTHER: No other significant findings. IMPRESSION: Multilevel spondylotic changes most significantly at the lower lumbar levels which demon strate moderate to severe neural foraminal stenosis as detailed above. Recommend correlation for ass ociated radicular symptoms. TECHNICAL DOCUMENTATION: JOB ID: [id number]- All Rights Reserved Reading location - IP/workstation name: [email or web address]
[2018-10-29] MEDS ORDERED: HYDROCODONE/ACETAMINOPHEN 5-325 MG (6 TAB/ER DISP) PO PRN (19:09)
== END 2018-10-29 20:12 | disposition home or self-care (01) ==
LOC: ER 14:05
DX: M51.16 Intervertebral disc disorders with radiculopathy, lumbar region (principal); M51.17 Intervertebral disc disorders with radiculopathy, lumbosacral region; J44.9 Chronic obstructive pulmonary disease, unspecified; F17.200 Nicotine dependence, unspecified, uncomplicated
CPT/HCPCS: 99284; 96372; 72148; 73502; 72110; J1885

== ENCOUNTER 2018-11-08 12:14 | Emergency (ER) | payer SELFPAY ==
[2018-11-08] MEDS ORDERED: MORPHINE SULFATE 10 MG/ML INJ IM ONE (14:46)
[2018-11-08] MEDS ORDERED: ONDANSETRON 4 MG TAB.RAPDIS PO ONE (14:47)
[2018-11-08] MEDS ORDERED: METHYLPREDNISOLONE INJ 40 MG/1 ML SDV IM ONE (14:47)
[2018-11-08] MEDS ORDERED: GABAPENTIN 100 MG CAPSULE PO ONE ×2 (14:48→16:54)
--- NOTE | 2018-11-08 15:29 | ER Document Report ---
ED Medical Screen (RME) - General Chief Complaint: Leg Pain Stated Complaint: LEG PAIN Time Seen by Provider: 11/08/18 14:37 Notes: Patient is a 63-year-old male that presents to the emergency department for chief complaint of right back and leg pain and weakness. Patient seen in the ED about 10 days ago for similar complaints, was discharged on prednisone and Flexeril, back now that his pain is worse, he states he had issues trying to see orthopedic surgery, because of financial reasons.. ROS: Other than noted above, the 12 point review of systems was reviewed with the patient and were negative, all pertinent findings are included in the HPI. PHYSICAL EXAMINATION: Vital signs reviewed. GENERAL: Appears uncomfortable and in pain HEAD: Atraumatic, normocephalic. EYES: Pupils equal round extraocular movements intact, conjunctiva are normal. ENT: Nares patent NECK: Normal range of motion CV: Heart regular rate and rhythm LUNGS: No respiratory distress Musculoskeletal: Pain with range of motion of the right lower extremity NEUROLOGICAL: Normal speech, sensation light touch seems to be decreased on the right compared to the left, muscular motor strength is +4/5 with dorsiflexion, plantarflexion and extension of the hallucis longus tendon, on the right leg compared to the left which is 5/5 PSYCH: Normal mood, normal affect. MDM: Patient seen and examined for rapid initial assessment. Vital signs reviewed. A comprehensive ED assessment and evaluation of the patient, analysis of test results and completion of the medical decision making process will be conducted by additional ED providers. *Note is created using voice recognition software and may contain spelling, syntax or grammatical errors. TRAVEL OUTSIDE OF THE [place] IN LAST 30 DAYS: No - Related Data Allergies/Adverse Reactions: No Known Allergies Allergy (Verified 11/08/18 12:16) Past Medical History - Past Medical History Cardiac Medical History: Reports: Hx Hypertension Pulmonary Medical History: Reports: Hx COPD Denies: Hx Tuberculosis Neurological Medical History: Denies: Hx Cerebrovascular Accident, Hx Seizures Renal/ Medical History: Denies: Hx Peritoneal Dialysis Musculoskeltal Medical History: Reports Hx Arthritis Past Surgical History: Reports: Hx Appendectomy, Hx Bowel Surgery - torsion, Hx Testicular Surgery - torsion - Immunizations Hx Diphtheria, Pertussis, Tetanus Vaccination: Yes - 12/15/14 Physical Exam - Vital signs Vitals: Temp Pulse Resp BP Pulse Ox 98.2 F 83 18 117/64 95 11/08/18 12:59 11/08/18 12:59 11/08/18 12:59 11/08/18 12:59 11/08/18 12:59 Course - Vital Signs Vital signs: Temp Pulse Resp BP Pulse Ox 98.2 F 83 18 117/64 95 11/08/18 12:59 11/08/18 12:59 11/08/18 12:59 11/08/18 12:59 11/08/18 12:59
--- NOTE | 2018-11-08 16:47 | ER Document Report ---
ED General - General Chief Complaint: Leg Pain Stated Complaint: LEG PAIN Time Seen by Provider: 11/08/18 14:37 Notes: Patient is a 63-year-old male who presents emergency department with a chief complaint of left leg pain. He is Bengali-speaking and Monica was used for interpretation. He states that the pain starts in his buttock and it radiates down to his feet he does have some numbness and tingling. He says he did not do anything in particular that was different. When he is laying down his pain is not there, but when he goes from sitting to standing, he has the pain. When he is walking around the pain is not as bad. On October 29 he was seen in the emergency department and an MRI was done and he multilevel spondylitic changes in his lumbar area with some stenosis. His symptoms correlate with his MRI that was done that day. He states that he did get better for a few days, but for the past couple of days has back to where he was before. He has had this problem in the past, and usually gets steroid injections [place] was [place]. He has not followed up with orthopedics due to not having the funds for the initial visit, which cost $400. He states he cannot afford that. TRAVEL OUTSIDE OF THE [place] IN LAST 30 DAYS: No - Related Data Allergies/Adverse Reactions: No Known Allergies Allergy (Verified 11/08/18 12:16) Past Medical History - Social History Smoking Status: Current Every Day Smoker Family History: Reviewed & Not Pertinent Patient has suicidal ideation: No Patient has homicidal ideation: No - Past Medical History Cardiac Medical History: Reports: Hx Hypertension Pulmonary Medical History: Reports: Hx COPD Denies: Hx Tuberculosis Neurological Medical History: Denies: Hx Cerebrovascular Accident, Hx Seizures Renal/ Medical History: Denies: Hx Peritoneal Dialysis Musculoskeletal Medical History: Reports Hx Arthritis Past Surgical History: Reports: Hx Appendectomy, Hx Bowel Surgery - torsion, Hx Testicular Surgery - torsion - Immunizations Hx Diphtheria, Pertussis, Tetanus Vaccination: Yes - 12/15/14 Review of Systems - Review of Systems Notes: REVIEW OF SYSTEMS: CONSTITUTIONAL : Denies recent illness. Denies recent unintentional weight loss. Denies fever, chills, or sweats. EENT: Denies eye, ear, throat, or mouth pain, discharge, or symptoms. Denies nasal or sinus congestion. CARDIOVASCULAR: Denies chest pain. RESPIRATORY: Denies shortness of breath, cough, congestion, difficulty breathing, or wheezing. GASTROINTESTINAL: Denies nausea, vomiting, and diarrhea. Denies abdominal pain. Denies constipation. GENITOURINARY: Denies difficulty urinating, burning, blood in urine, urgency or frequency. MUSCULOSKELETAL: See HPI SKIN: Denies rash, itchiness, or lesions HEMATOLOGIC : Denies easy bruising or bleeding. LYMPHATIC: Denies swollen, painful, enlarged glands. NEUROLOGICAL: Denies no numbness or tingling denies weakness. Denies headache. Denies altered mental status. Denies alteration in speech. PSYCHIATRIC: Denies stress, anxiety, alteration in sleep patterns, or depression. All other systems reviewed and negative. Physical Exam - Vital signs Vitals: Temp Pulse Resp BP Pulse Ox 98.2 F 83 18 117/64 95 11/08/18 12:59 11/08/18 12:59 11/08/18 12:59 11/08/18 12:59 11/08/18 12:59 - Notes Notes: PHYSICAL EXAMINATION: GENERAL: Appears older than stated age, chronically ill, no acute distress. HEAD: Normocephalic, atraumatic. EYES: PERRL, conjunctiva normal, all extraocular movements intact, sclera nonicteric ENT: Moist mucous membranes. NECK: Supple, no noticeable swelling, redness, rash. Normal range of motion. LUNGS: Equal breath sounds bilaterally and clear to auscultation. No wheezes rales or rhonchi. CARDIOVASCULAR: S1-S2, regular rate, regular rhythm. Radial pulses 2+, normal. ABDOMEN: Normoactive bowel sounds. Soft, nontender, no guarding, no rebound tenderness, and no masses palpated. EXTREMITIES: Normal strength and range of motion, no pitting or edema. No cyanosis. NEUROLOGICAL: Moves all extremities upon command. Decreased range of motion to RLE due to pain. All other extremities full range of motion PSYCH: Normal mood, normal affect. SKIN: Warm, dry. No rash, lesions, ulcerations noted. Normal skin turgor. MSK: Tenderness to left buttock area. Patient has a limp when he walks. Course - Re-evaluation Re-evalutation: Differential diagnosis for back pain includes muscle spasm, muscle strain, slipped disc cauda equina syndrome, vertebral fracture, vertebral tumor, epidural abscess, pyelonephritis, or AAA. Based on history and exam, the most likely etiology of the patient's back pain is chronic in nature. Emergent MRI is not indicated at this time because the patient had a recent MRI. Patient does not have bladder or bowel dysfunction. Patient does not have history of IV drug use, therefore, I do not suspect an epidural abscess. Patient does not have recent weight loss or night sweats, and does not have a known history of cancer. 11/08/18 16:47 Patient has already had an MRI, and shows spondylitic changes and stenosis in his lumbar area, causing radiculopathy. He received steroids and pain medication in triage. He states he feels somewhat better. He will be given gabapentin to go home with and he will be consulted for social work to help with insurance and finances. Verbal discharge instructions were given to the patient. They verbalized understanding. They are stable for discharge. - Vital Signs Vital signs: Temp Pulse Resp BP Pulse Ox 98.1 F 80 16 115/62 98 11/08/18 17:25 11/08/18 17:25 11/08/18 17:25 11/08/18 17:25 11/08/18 17:25 Discharge - Discharge Clinical Impression: Left sciatic nerve pain Chronic back pain Qualifiers: Back pain location: low back pain Back pain laterality: left Sciatica presence: with sciatica Sciatica laterality: sciatica of left side Qualified Code(s): M54.42 - Lumbago with sciatica, left side Condition: Stable Disposition: HOME, SELF-CARE Additional Instructions: You were seen today in the emergency department for back pain. Your pain is chronic. You have been given gabapentin, medication to help with your nerve pain, please take as directed. Please go see the urgent care at [facility] to be referred out to their spinal surgeon. If you are unable to walk, have worsening symptoms, or have symptoms that are worrisome to you, please return to the emergency department. Please follow up with the urgent care here and see if you can be referred to the veterinary milk specialist. [facility] in [address] Prescriptions: Gabapentin [Neurontin 300 mg Capsule] 300 mg PO BID #90 cap Print Language: Bengali
[2018-11-08 17:26] VITALS: BP 115/62
== END 2018-11-08 17:25 | disposition home or self-care (01) ==
LOC: ER 12:14
DX: G89.29 Other chronic pain (principal); M54.42 Lumbago with sciatica, left side; M48.061 Spinal stenosis, lumbar region without neurogenic claudication; F17.200 Nicotine dependence, unspecified, uncomplicated; I10 Essential (primary) hypertension; J44.9 Chronic obstructive pulmonary disease, unspecified
CPT/HCPCS: 99283; 96372; S0119; J2920; J2270

== ENCOUNTER 2018-11-11 10:01 | Emergency (ER) | payer SELFPAY ==
[2018-11-11 10:12] VITALS: BP 126/57
[2018-11-11] MEDS ORDERED: DEXAMETHASONE SOD PHOS INJ 10 MG/1 ML VIAL IM ONE (11:05)
[2018-11-11] MEDS ORDERED: KETOROLAC TROMETHAMINE 60 MG/2 ML SDV IM ONE (11:05)
[2018-11-11] MEDS ORDERED: LIDOCAINE 5% (700 MG) TRANSDERMAL ADH..PATCH TP ONE (11:06)
--- NOTE | 2018-11-11 11:59 | ER Document Report ---
ED Neck/Back Problem - General Chief Complaint: Leg Pain Stated Complaint: LEFT LEG PAIN Time Seen by Provider: 11/11/18 10:28 Mode of Arrival: Wheelchair Information source: Patient Notes: 63-year-old male presented to ED for complaint of low back pain with radiation down the left leg. This is his third visit in October for this same pain. He has been instructed each time to follow-up with a back specialist for his low back pain with sciatica going down the left leg. He did have an MRI on his first visit. He was instructed to follow-up with orthopedics but he stated he could not follow-up with them so his second visit he was instructed to follow-up with [facility]. He states he did not follow-up with them. He states he still needs the shot in his back for his pain. I explained to him that we do not give steroid shots into the spine he would need to follow-up with a back specialist in order to get this shot. He was given a Toradol and steroid IM injection as well as treated with a Lidoderm patch today for his back pain. He was given instructions on exercises ice packs warm packs and the need to follow-up with [facility] to get a referral to a back specialist as well as he was given a name and number for pain management to control his pain until then. Patient was instructed to continue using his gabapentin and to use the end of inflammatories that he was prescribed. After much discussion through the manager channel patient verbalized understanding and agreement with this treatment plan. He states he misunderstood about following up with [facility] but he will follow-up now. Patient is alert oriented respirations regular and unlabored. He states the pain is the same pain it is not increased it just is not getting better. He states on the last visit when he was given the medications in the ER he was okay for that day but the next day the pain came back. He states he was not told to take anti-inflammatories at home just the gabapentin. Patient was able to ambulate before he was discharged. TRAVEL OUTSIDE OF THE [place] IN LAST 30 DAYS: No - HPI Patient complains to provider of: Lower back Onset: Other - Chronic Onset: Chronic Timing: Waxing and waning Quality of pain: Sharp, Stabbing Severity: Moderate Pain Level: 3 Associated symptoms: Like prior neck/back pain, Radiation to leg, Lower back pain. denies: Constipation, Fever, Incontinence, Motor loss, Numbness/tingling, Radiation to arm, Radiation to chest, Sensory loss, Sweaty, Unable to urinate, Upper back pain Exacerbated by: Movement of trunk, Sitting position Relieved by: Nothing Similar symptoms previously: Yes Recently seen / treated by doctor: Yes - Related Data Allergies/Adverse Reactions: No Known Allergies Allergy (Verified 11/08/18 12:16) Past Medical History - General Information source: Patient - Social History Smoking Status: Current Every Day Smoker Frequency of alcohol use: None Drug Abuse: None Family History: Reviewed & Not Pertinent Patient has suicidal ideation: No Patient has homicidal ideation: No - Past Medical History Cardiac Medical History: Reports: Hx Hypertension Pulmonary Medical History: Reports: Hx COPD EENT Medical History: Reports: None Neurological Medical History: Reports: None Endocrine Medical History: Reports: None Renal/ Medical History: Reports: None Malignancy Medical History: Reports None GI Medical History: Reports: None Musculoskeletal Medical History: Reports Hx Arthritis, Reports Hx Musculoskeletal Deformity Skin Medical History: Reports None Traumatic Medical History: Reports: None Infectious Medical History: Reports: None Past Surgical History: Reports: Hx Appendectomy, Hx Bowel Surgery - torsion, Hx Testicular Surgery - torsion - Immunizations Hx Diphtheria, Pertussis, Tetanus Vaccination: Yes - 12/15/14 Review of Systems - Review of Systems Constitutional: No symptoms reported EENT: No symptoms reported Cardiovascular: No symptoms reported Respiratory: No symptoms reported Gastrointestinal: No symptoms reported Genitourinary: No symptoms reported Male Genitourinary: No symptoms reported Musculoskeletal: Back pain, Muscle pain, Muscle stiffness Skin: No symptoms reported Hematologic/Lymphatic: No symptoms reported Neurological/Psychological: No symptoms reported -: Yes All other systems reviewed and negative Physical Exam - Vital signs Vitals: Temp Pulse Resp BP Pulse Ox 98.1 F 89 16 126/57 H 96 11/11/18 10:11 11/11/18 10:11 11/11/18 10:11 11/11/18 10:11 11/11/18 10:11 Interpretation: Normal - General General appearance: Appears well, Alert - HEENT Head: Normocephalic, Atraumatic Eyes: Normal Pupils: PERRL - Respiratory Respiratory status: No respiratory distress Chest status: Nontender Breath sounds: Normal Chest palpation: Normal - Cardiovascular Rhythm: Regular Heart sounds: Normal auscultation Murmur: No - Abdominal Inspection: Normal Distension: No distension Bowel sounds: Normal Tenderness: Nontender Organomegaly: No organomegaly - Back Back: Normal, Tender, Vertebra tenderness. No: Deformity/step-off, CVA tenderness, Scars, Scoliosis, Wounds - Extremities General upper extremity: Normal inspection, Nontender, Normal color, Normal ROM, Normal temperature General lower extremity: Normal inspection, Nontender, Normal color, Normal ROM, Normal temperature, Normal weight bearing. No: Ester's sign - Neurological Neuro grossly intact: Yes Cognition: Normal Orientation: AAOx4 [place] Coma Scale Eye Opening: Spontaneous [place] Coma Scale Verbal: Oriented [place] Coma Scale Motor: Obeys Commands [place]ilia Coma Scale Total: 15 Speech: Normal Cranial nerves: Normal Cerebellar coordination: Normal Motor strength normal: LUE, RUE, LLE, RLE Additional motor exam normals: Equal bag hanger Babinski reflex: Normal (flexor plantar) Sensory: Normal Biceps - Reflex grade: 2 = Normal Triceps - Reflex grade: 2 = Normal Brachioradialis - Reflex grade: 2 = Normal Knee - Reflex grade: 2 = Normal Ankle - Reflex grade: 2 = Normal - Psychological Associated symptoms: Normal affect, Normal mood - Skin Skin Temperature: Warm Skin Moisture: Dry Skin Color: Normal Course - Re-evaluation Re-evalutation: 11/11/18 12:00 After performing a Medical Screening Examination, I estimate there is LOW risk for EXPANDING OR RUPTURED ABDOMINAL AORTIC ANEURYSM, CAUDA EQUINA SYNDROME, EPIDURAL MASS LESION, or HERNIATED DISK CAUSING SEVERE SPINAL STENOSIS, thus I consider the discharge disposition reasonable. I have reevaluated this patient multiple times and no significant life threatening changes are noted. The patient and I have discussed the diagnosis and risks, and we agree with discharging home and close follow-up. We also discussed returning to the [facility] immediately if new or worsening symptoms occur with the understanding that symptoms and presentations can change. We have discussed the symptoms which are most concerning (e.g., saddle anesthesia, urinary or bowel incontinence or retention, changing or worsening pain) that necessitate immediate return. - Vital Signs Vital signs: Temp Pulse Resp BP Pulse Ox 98.1 F 89 16 126/57 H 96 11/11/18 10:11 11/11/18 10:11 11/11/18 10:11 11/11/18 10:11 11/11/18 10:11 Discharge - Discharge Clinical Impression: Left sciatic nerve pain Chronic back pain Qualifiers: Back pain location: low back pain Back pain laterality: left Sciatica presence: with sciatica Sciatica laterality: sciatica of left side Qualified Code(s): M54.42 - Lumbago with sciatica, left side; G89.29 - Other chronic pain Condition: Stable Disposition: HOME, SELF-CARE Additional Instructions: Chronic Back Pain Chronic back pain (pain persisting longer than three months) is a common problem. A medical evaluation can look for herniated disc, arthritis, osteoporosis, tumors, and infections. But at least half the time, there's no obvious treatable cause. Anxiety and depression tend to worsen back pain. Ibuprofen or other anti-inflammatory medicine can help. A heating pad, used for 15-20 minutes at a time, can ease pain. For this type of back pain, narcotic medicines should be avoided. Muscle relaxers are rarely helpful unless you're having spasms. Activity is important. Find an aerobic exercise program that your back can tolerate. Too much rest makes back pain worse. Specific back exercises are usually prescribed to strengthen the back and abdominal muscles. Often, a physical therapist can help. Avoid heavy lifting, working while bent over, or standing with both knees straight. Most back pain patients do better with a firm mattress. If new symptoms of a "herniated disc" (radiation of pain, numbness, or tingling down the back of the leg or weakness in the leg) occur, you should be re-examined. ICE PACKS: Apply ice packs frequently against the painful area. Many different schedules are recommended, such as "20 minutes on, 20 minutes off" or "one hour ice, two hours rest." If you need to work, you may need to go longer between ice treatments. You should plan to have the area ice packed AT LEAST one fourth of the time. The ice should be applied over the wrap, tape, or splint, or over a layer of cloth -- not directly against the skin. Some ice bags have a built-in cloth and can be put directly on the skin. WARM PACKS: After approximately two days, apply gentle heat (such as a heating pad or hot water bottle) for about 20 to 30 minutes about every two hours -- at least four times daily. Warmth and elevation will help you make a more rapid recovery, and will ease the pain considerably. Do not use HOT heat, and never apply heat for longer than 30 minutes. The continuous heat can invisibly damage skin and muscles -- even when no burn is seen on the surface. Damaged muscles can make you MORE sore. Toradol Injection You have been given an injection of ketorolac tromethamine (Toradol). This is an excellent, safe drug for pain control. It also has potent antiinflammatory action. You should have significant pain relief within about one hour. Toradol is not addicting and is non-sedating. It does not interfere with driving or work. Call or return if you develop itching, hives, shortness of breath, or rash. STEROID MEDICATION: You have been given an injection of medicine of the cortisone/steroid class. This medication is used to control inflammation or allergy. It is often continued as a pill for a short period of time, until the acute process subsides. There are usually no side effects from short-term use of cortisone-like medications. Some persons feel an increased sense of well-being and are not sleepy at bedtime. Long-term use of cortisone medications is best avoided, unless required for a severe condition. If your condition does not remit, or relapses after the course of corticosteroid medication, you should consult your physician. Stretching Exercises for the Back The physician has recommended that you begin stretching exercises for your back. These are often used even while the back is painful. However, you should notify the physician if the activities seem to increase your pain. PELVIC TILT: Lie flat on your back with knees bent. Tighten your stomach and buttock muscles so it flattens your lower back against the floor. Hold 10 seconds. Repeat 10 times, twice daily. KNEE RAISE: Lying on the back with knees bent, raise one knee to your chest, then the other. Hold both knees against the chest 10 seconds, then lower one knee at a time. Repeat 10 times, twice daily. PARTIAL TRUNK RAISE: Lie face down, arms at your sides. Keeping your waist on the floor, use your arms raise your chest up. Support yourself on your elbows for 30 seconds. Repeat twice daily, increasing the time to two minutes as you recover. Anti-Inflammatory Medication You have received a prescription for an antiinflammatory agent. This is an excellent, safe drug for pain control. In addition, it has potent antiinflammatory effects which are beneficial, especially in the treatment of injuries, arthritis, or tendonitis. It's best to take this medicine with food. Persons with ulcer disease or allergy to aspirin should notify their physician of this before taking this drug. Take the medication exactly as prescribed. Don't take additional doses unless instructed to do so by your doctor. If you develop wheezing, shortness of breath, hives, faintness, stomach pain, vomiting, or dark black stools, return for re-evaluation at once. FOLLOW-UP CARE: If you have been referred to a physician for follow-up care, call the physicians office for an appointment as you were instructed or within the next two days. If you experience worsening or a significant change in your symptoms, notify the physician immediately or return to the Emergency Department at any time for re-evaluation. [facility] * Address: [address] [place] [address] * Prescriptions: Naproxen 500 mg PO BIDP PRN #20 tablet PRN Reason: For Pain Forms: Elevated Blood Pressure, Smoking Cessation Education Referrals: [facility] [Provider Group] - Follow up as needed
== END 2018-11-11 12:07 | disposition home or self-care (01) ==
LOC: ER 10:01
DX: M54.42 Lumbago with sciatica, left side (principal); G89.29 Other chronic pain; M79.605 Pain in left leg; F17.200 Nicotine dependence, unspecified, uncomplicated; I10 Essential (primary) hypertension; J44.9 Chronic obstructive pulmonary disease, unspecified
CPT/HCPCS: 99283; 96372; J1885; J1100

== ENCOUNTER 2018-12-21 20:25 | Emergency (ER) | payer SELFPAY ==
--- NOTE | 2018-12-21 22:04 | RADIOLOGY REPORT (SQ) ---
EXAM DESCRIPTION: XR HIP 2 OR MORE VIEWS COMPLETED DATE/TME: 12/21/2018 20:29 CLINICAL HISTORY: 63 years, Male, pain COMPARISON: None. NUMBER OF VIEWS: 2 TECHNIQUE: AP pelvis and single view left hip LIMITATIONS: None. FINDINGS: Osteopenia. Negative for acute fracture or dislocation. Vascular calcifications. Moderate degenerative change of the hips bilaterally IMPRESSION: No acute osseous abnormality copyright 2010 [employer]- All Rights Reserved
[2018-12-21] MEDS ORDERED: MORPHINE SULFATE 10 MG/ML INJ IV ONE (22:14)
[2018-12-21] MEDS ORDERED: ONDANSETRON HCL INJ/PF 4 MG/2 ML SDV IV ONE (22:14)
[2018-12-21] MEDS ORDERED: METHYLPREDNISOLONE INJ 125 MG/2 ML SDV IV ONE (22:14)
--- NOTE | 2018-12-21 22:37 | ER Document Report ---
ED General - General Chief Complaint: Hip Pain Stated Complaint: LEG/HIP PAIN Time Seen by Provider: 12/21/18 22:00 TRAVEL OUTSIDE OF THE [place] IN LAST 30 DAYS: No - HPI Notes: Patient is a 63-year-old Faroese-speaking gentleman who presents to the emergency department via EMS. [employer] services were used. Patient presents today complaining of left lower back and hip pain. He states this is not new. Is been going on for several months. Is been worse over the last several days. He states on occasion his entire left leg feels numb. He denies any bowel or bladder incontinence, no saddle anesthesia. He denies any fevers. He has been told in the past that he needs surgery, but was told that it would cost $6000. He does not have the money, nor does he have any medical coverage that would h elp with this. He is able to walk although his gait is antalgic. He states he had an MRI here on his last visit but was unaware of the results. - Related Data Allergies/Adverse Reactions: No Known Allergies Allergy (Verified 11/08/18 12:16) Past Medical History - General Information source: Patient - Social History Smoking Status: Current Every Day Smoker Family History: Reviewed & Not Pertinent Patient has suicidal ideation: No Patient has homicidal ideation: No - Past Medical History Cardiac Medical History: Reports: Hx Hypertension Pulmonary Medical History: Reports: Hx COPD Denies: Hx Tuberculosis Neurological Medical History: Denies: Hx Cerebrovascular Accident, Hx Seizures Renal/ Medical History: Denies: Hx Peritoneal Dialysis Musculoskeletal Medical History: Reports Hx Arthritis, Reports Hx Musculoskeletal Deformity Past Surgical History: Reports: Hx Appendectomy, Hx Bowel Surgery - torsion, Hx Testicular Surgery - torsion - Immunizations Hx Diphtheria, Pertussis, Tetanus Vaccination: Yes - 12/15/14 Review of Systems - Review of Systems Constitutional: No symptoms reported EENT: No symptoms reported Cardiovascular: No symptoms reported Respiratory: No symptoms reported Gastrointestinal: No symptoms reported Genitourinary: No symptoms reported Musculoskeletal: See HPI Skin: No symptoms reported Neurological/Psychological: No symptoms reported Physical Exam - Vital signs Vitals: Temp Pulse Resp BP Pulse Ox 97.3 F 66 14 145/86 H 97 12/21/18 20:52 12/21/18 20:52 12/21/18 20:52 12/21/18 20:52 12/21/18 20:52 - Notes Notes: Vital signs reviewed, please refer to chart. Patient is normocephalic, atraumatic. Pupils equal round, reactive to light. Neck is supple without meningismus. Heart is regular rate and rhythm. Lungs are clear to auscultation bilaterally. Abdomen is soft, nontender, normoactive bowel sounds throughout. Extremities without cyanosis, clubbing, edema. Peripheral pulses are equal. Skin is warm and dry. Examination of the spine feels no midline tenderness or step-off. He has marked paraspinal musculature tenderness throughout the left lumbar spine. He is significantly tender over the left piriformis. He resists any sort of passive range of motion of any part of his left lower extremity. Left patellar and Achilles reflexes are markedly diminished, sensation is intact to light touch. Dorsalis pedis pulse is 2+ on the left. Course - Re-evaluation Re-evalutation: 12/21/18 22:36 Patient presents to the emergency department for evaluation via EMS. He was medicated with fentanyl prior to arrival. After examination, I did order Solu- Medrol as well as morphine and Zofran for this patient's symptoms. I did review his MRI, which did show moderate to severe spinal stenosis and foraminal stenosis throughout the lower lumbar spine. Unfortunately we do not have neurosurgery on staff here. We will attempt to control his symptoms. 12/22/18 02:29 Patient was medicated again here. He has had some relief here. I will send him home with a prednisone taper. At this point, the patient ultimately needs evaluation by neurosurgery or orthospine. He does not have any emergent conditions which would prompt us to transfer the patient at this time. We will send him home with a small amount of pain medication as well. He is to return to the emergency department with worsening or new concerning symptoms. - Vital Signs Vital signs: Temp Pulse Resp BP Pulse Ox 97.6 F 77 20 112/70 95 12/22/18 02:01 12/22/18 02:01 12/22/18 02:01 12/22/18 02:01 12/22/18 02:01 Discharge - Discharge Clinical Impression: Lumbosacral radiculopathy Condition: Stable Disposition: HOME, SELF-CARE Instructions: Radiculopathy ([facility]) Additional Instructions: Take medications as prescribed. Return to the emergency department with worsening or new concerning symptoms of any sort.
[2018-12-22] MEDS ORDERED: MORPHINE SULFATE 10 MG/ML INJ IV ONE (00:28)
[2018-12-22 04:29] VITALS: BP 156/92
== END 2018-12-22 04:29 | disposition home or self-care (01) ==
LOC: ER 20:25
DX: M54.17 Radiculopathy, lumbosacral region (principal); M25.552 Pain in left hip; F17.200 Nicotine dependence, unspecified, uncomplicated; I10 Essential (primary) hypertension
CPT/HCPCS: 96376; 99284; 96374; 96375; 73502; J2930; J2270 ×2; J2405

== ENCOUNTER 2019-09-16 21:54 | Emergency (ER) | payer SELFPAY ==
[2019-09-16 22:30] VITALS: BP 125/69
== END 2019-09-16 23:00 | disposition left against medical advice (07) ==
LOC: ER 21:54
DX: Z53.21 Procedure and treatment not carried out due to patient leaving prior to being seen by health care provider (principal)

== ENCOUNTER 2020-06-09 10:55 | Emergency (ER) | payer SELFPAY ==
[2020-06-09] MEDS ORDERED: LORAZEPAM INJ 2 MG/1 ML VIAL IV ONE (12:16)
[2020-06-09 12:21] LABS: ABSOLUTE BASOPHILS # (AUTO) 0.1 10^3/uL (0.0-0.2); ABSOLUTE EOSINOPHILS # (AUTO) 0.1 10^3/uL (0.0-0.6); ABSOLUTE LYMPHOCYTES (AUTO) 0.6 10^3/uL (0.5-4.7); ABSOLUTE MONOCYTES (AUTO) 0.3 10^3/uL (0.1-1.4); ABSOLUTE NEUT (AUTO) 1.9 10^3/uL (1.7-8.2); ALBUMIN 4.6 g/dL (3.5-5.0); ALKALINE PHOSPHATASE 130 U/L (38-126); ANION GAP 9 (5-19); ASPARTATE AMINO TRANSFERASE 428 U/L (17-59); BASOPHILS % (AUTO) 1.9 % (0-2); BILIRUBIN,DIRECT 0.5 mg/dL (0.0-0.4); BILIRUBIN,TOTAL 0.9 mg/dL (0.2-1.3); BLOOD UREA NITROGEN 5 mg/dL (7-20); CARBON DIOXIDE 33 mmol/L (22-30); CHLORIDE 94 mmol/L (98-107); CREATINE KINASE 152 U/L (55-170); GLUCOSE 157 mg/dL (75-110); HEMATOCRIT 37.7 % (37.9-51.0); HEMOGLOBIN 12.8 g/dL (13.5-17.0); LYMPHOCYTES % (AUTO) 19.9 % (13-45); MEAN CORPUSCULAR HEMOGLOBIN 33.3 pg (27.0-33.4); MEAN CORPUSCULAR VOLUME 98 fl (80-97); MONOCYTES % (AUTO) 11.3 % (3-13); POTASSIUM 3.9 mmol/L (3.6-5.0); RED BLOOD COUNT 3.86 10^6/uL (4.35-5.55); RED CELL DISTRIBUTION WIDTH 15.5 % (11.5-14.0); SEGMENTED NEUTROPHILS % (AUTO) 64.9 % (42-78); TOTAL CELLS COUNTED % (AUTO) 100 %; TOTAL PROTEIN 7.6 g/dL (6.3-8.2)
[2020-06-09 12:31] LABS: CREATINE KINASE MB 3.62 ng/mL (<4.55)
[2020-06-09 12:32] LABS: TROPONIN I < 0.012 ng/mL
[2020-06-09 12:33] LABS: INTERNATIONAL RATION (INR) 0.93; PROTHROMBIN TIME 12.7 SEC (11.4-15.4)
[2020-06-09 12:34] LABS: PARTIAL THROMBOPLASTIN TIME 31.4 SEC (23.5-35.8)
[2020-06-09 12:48] LABS: ACETAMINOPHEN < 10 ug/mL (10-30)
[2020-06-09 12:50] LABS: PLATELET COUNT 62 10^3/uL (150-450)
--- NOTE | 2020-06-09 13:17 | RADIOLOGY REPORT (SQ) ---
EXAM DESCRIPTION: CHEST SINGLE VIEW IMAGES COMPLETED DATE/TIME: 06/09/2020 11:48 am REASON FOR STUDY: bed 10 chest pain COMPARISON: 04/17/2017 EXAM PARAMETERS: NUMBER OF VIEWS: One view. TECHNIQUE: Single frontal radiographic view of the chest acquired. RADIATION DOSE: NA LIMITATIONS: None. FINDINGS: LUNGS AND PLEURA: Asymmetric right apical pleural and parenchymal scarring is new from [place] or examination. Lungs are hyperinflated. No focal consolidation. No pleural effusion or pneumothor ax. MEDIASTINUM AND HILAR STRUCTURES: No masses. Contour normal. HEART AND VASCULAR STRUCTURES: Heart normal in size. Normal vasculature. BONES: No acute findings. HARDWARE: None in the chest. OTHER: No other significant finding. IMPRESSION: No focal consolidation or effusion. Asymmetric pleural and parenchymal scarring/ consol idation at the right lung apex may represent infectious/ inflammatory process or possibly an underlyi ng apical mass. Further evaluation with contrast-enhanced CT is recommended. TECHNICAL DOCUMENTATION: JOB ID: [id number] 2010 [employer]- All Rights Reserved Reading location - IP/workstation name: [id number]
[2020-06-09] MEDS ORDERED: RINGERS SOLUTION,LACTATED 1,000 ML IV ONE (14:17)
[2020-06-09] MEDS ORDERED: NORMAL SALINE 1000 ML 1,000 ML with POTASSIUM CHLORIDE 20 MEQ, MAGNESIUM SULFATE 8 MEQ,... IV PRN ×5 (16:14)
[2020-06-09] MEDS ORDERED: NORMAL SALINE 1000 ML 1,000 ML with POTASSIUM CHLORIDE 20 MEQ, MAGNESIUM SULFATE 8 MEQ,... IV ONE ×5 (16:55)
--- NOTE | 2020-06-09 17:17 | EKG REPORT ---
SEVERITY:- ABNORMAL ECG - SINUS RHYTHM ST ELEVATION SUGGESTS PERICARDITIS [address] AV BLOCK : Confirmed by: Yeison Leonard 09-Jun-2020 17:17:02
[2020-06-09] MEDS ORDERED: NORMAL SALINE 1000 ML 1,000 ML with THIAMINE HCL 100 MG, MVI, ADULT NO.1 WITH VIT K 10 ML IV ONE ×6 (19:00→21:00)
[2020-06-09] MEDS ORDERED: MAGNESIUM SULFATE/D5W 1 GM/100 ML RTUPB IV ONE ×2 (19:00→21:00)
--- NOTE | 2020-06-09 19:11 | RADIOLOGY REPORT (SQ) ---
EXAM DESCRIPTION: CT CHEST WITH; CT ABD/PELVIS WITH IV ORAL IMAGES COMPLETED DATE/TIME: 06/09/2020 5:43 pm REASON FOR STUDY: apical mass; elevated lfts/abd pain. Possible apical mass on chest radiograph. COMPARISON: CT abdomen and pelvis 06/22/2016. Chest radiograph same date. Chest radiograph, 04/17/20 17 CONTRAST TYPE AND DOSE: contrast/concentration: Isovue 350.00 mmol/ml; Total Contrast Delivered: 62. 0 ml; Total Saline Delivered: 65.0 ml RENAL FUNCTION: GFR > 60. TECHNIQUE: CT scan of the chest performed using helical scanning technique with dynamic intravenous contrast injection. Images reviewed with lung, soft tissue and bone windows. Reconstructed coronal a nd sagittal MPR images reviewed. All images stored on PACS. CT scan of the abdomen and pelvis performed with intravenous and oral contrast using helical scanning technique with dynamic intravenous contrast injection. Images reviewed with lung, soft tissue and b one windows. Reconstructed coronal and sagittal MPR images reviewed. Delayed images for evaluation of the urinary system also acquired and evaluated. All images stored on PACS. All CT scanners at this facility use dose modulation, iterative reconstruction, and/or weight based d osing when appropriate to reduce radiation dose to as low as reasonably achievable (ALARA). [facility]: Dose Right [facility]: CareDose [facility]: Dose Right [facility]: Teradose 4D [facility]: Smart Magic Wheels RADIATION DOSE: CT Rad equipment meets quality standard of care and radiation dose reduction techniq ues were employed. CTDIvol: 4.8 mGy. DLP: 528 mGy-cm. . LIMITATIONS: None. FINDINGS: CHEST: AXILLAE: No adenopathy. CHEST WALL: No masses. No subcutaneous air. LUNGS: The trachea has normal caliber and appearance. No bronchial wall thickening or bronchiectasis . No focal consolidation. Background mild pulmonary emphysema predominantly at the lung apices. At the right lung apex, there is asymmetric pleural and parenchymal scarring with no focal mass. Subpl eural scarring extends along the right lateral chest wall where there is an associated healed fractur e and finding likely represents chronic pleural and parenchymal scarring. PLEURA: No effusions. No calcifications. THYROID: No masses or significant asymmetry. HILAR AND MEDIASTINAL STRUCTURES: No identified masses or abnormal nodes. AORTA AND GREAT VESSELS: No aneurysm. No dissection. There are calcified coronary arteries. PULMONARY ARTERIES: No identified pulmonary emboli. Study not optimized for the pulmonary arteries. HEART: Normal size. No pericardial effusion. HARDWARE AND LIFELINES: None. BONES: No significant finding. OTHER: No acute fracture, lytic or blastic bone lesion. ABDOMEN AND PELVIS: LIVER: The liver has normal size and contour. There is severe hepatic steatosis. No focal hepatic m ass. Hepatic and portal veins are patent. No biliary ductal dilation. SPLEEN: Normal size. No focal lesions. PANCREAS: No masses. No significant calcifications. No adjacent inflammation or peripancreatic flui d collections. Pancreatic duct not dilated. GALLBLADDER: No identified stones by CT criteria. No inflammatory changes to suggest cholecystitis. ADRENAL GLANDS: No significant masses or asymmetry. RIGHT KIDNEY AND URETER: No solid masses. No significant calcifications. No hydronephrosis or hyd roureter. LEFT KIDNEY AND URETER: No solid masses. No significant calcifications. No hydronephrosis or hydr oureter. AORTA AND VESSELS: No aneurysm. No dissection. Renal arteries, SMA, celiac without stenosis. RETROPERITONEUM: No retroperitoneal adenopathy, hemorrhage or masses. LARGE AND SMALL BOWEL: No dilatation. No masses. No wall thickening. APPENDIX: Not visualized. ABDOMINAL WALL: No hernia or masses. PERITONEAL CAVITY: No free air. No free fluid. No peritoneal implants or masses. PELVIS: Urinary bladder is moderately distended. Prostate is only partially visualized. No pelvic m ass. BONES: Spondylosis and degenerative disc disease, unchanged from prior. No suspicious bone lesions. OTHER: No other significant finding. IMPRESSION: 1. Severe hepatic steatosis. 2. Asymmetric right apical pleural and parenchymal scarring with associated healed right upper ribs, probably representing posttraumatic scarring. 3. No acute abnormality in the abdomen or pelvis. TECHNICAL DOCUMENTATION: JOB ID: [id number] Quality ID # [id number]: Final reports with documentation of one or more dose reduction techniques (e.g., Au tomated exposure control, adjustment of the mA and/or kV according to patient size, use of iterative reconstruction technique) 2010 [employer]- All Rights Reserved Reading location - IP/workstation name: [email or web address]
[2020-06-09] MEDS ORDERED: POTASSIUM CHLORIDE 20 MEQ/50 ML RTU IV ONE (20:00)
[2020-06-09] MEDS ORDERED: THIAMINE HCL INJ 200 MG/2 ML VIAL ONE (20:31)
[2020-06-09] MEDS ORDERED: MVI, ADULT NO.1 WITH VIT K INJ 10 ML VIAL IV ONE ×2 (20:45→21:13)
[2020-06-09 21:46] LABS: APPEARANCE,URINE CLEAR; BILIRUBIN,URINE NEGATIVE (NEGATIVE); COLOR,URINE STRAW; GLUCOSE, URINE NEGATIVE (NEGATIVE); KETONES,URINE NEGATIVE (NEGATIVE); LEUKOCYTE ESTERASE,URINE NEGATIVE (NEGATIVE); NITRITE,URINE NEGATIVE (NEGATIVE); PROTEIN,URINE NEGATIVE (NEGATIVE); URINE SPECIFIC GRAVITY 1.005; UROBILINOGEN,URINE NEGATIVE mg/dL (<2.0)
[2020-06-09 22:04] LABS: URINE AMPHETAMINES SCREEN NEGATIVE; URINE BARBITURATES SCREEN NEGATIVE; URINE BENZODIAZEPINES SCREEN NEGATIVE; URINE COCAINE SCREEN NEGATIVE; URINE MARIJUANA (THC) SCREEN NEGATIVE; URINE METHADONE SCREEN NEGATIVE; URINE PHENCYCLIDINE SCREEN NEGATIVE
[2020-06-10] MEDS ORDERED: LORAZEPAM INJ 2 MG/1 ML VIAL IV ONE ×3 (03:49→08:33)
--- NOTE | 2020-06-10 07:43 | ER Document Report ---
Entered by LOUISE GOODSON SCRIBE 06/09/20 1139 Acting as scribe for:CARYN TAVARES MD ED General - General Stated Complaint: CHEST PAIN, ETOH Information source: Patient, [facility] Records Notes: This 64 year old male patient presents to the emergency department today via EMS for chest pain and alcohol abuse. Patient is a Yoruba speaker and Monica is used for translation. Patient states his chest pain is sharp and in the left of his chest. Patient states he has been coughing lately and producing phlegm. Patient reports night sweats, intermittent headaches, and denies any trauma. Patient states he drinks x2 beers a day. Denies any fever, weight loss, constipation, diarrhea, rashes, abdominal pain, or urinary symptoms. TRAVEL OUTSIDE OF THE [place] IN LAST 30 DAYS: No - Related Data Allergies/Adverse Reactions: No Known Allergies Allergy (Verified 11/08/18 12:16) Past Medical History - General Information source: Patient, [facility] Records - Social History Smoking Status: Current Every Day Smoker Cigarette use (# per day): Yes Lives with: Alone Family History: Reviewed & Not Pertinent - Past Medical History Cardiac Medical History: Reports: Hx Hypertension Pulmonary Medical History: Reports: Hx COPD Musculoskeletal Medical History: Reports Hx Arthritis, Reports Hx Musculoskeletal Deformity Past Surgical History: Reports: Hx Appendectomy, Hx Bowel Surgery - torsion, Hx Testicular Surgery - torsion - Immunizations Hx Diphtheria, Pertussis, Tetanus Vaccination: Yes - 12/15/14 Review of Systems - Review of Systems Constitutional: See HPI. denies: Fever, Weight loss EENT: No symptoms reported Cardiovascular: See HPI, Chest pain - L Respiratory: See HPI, Cough Gastrointestinal: See HPI. denies: Abdominal pain, Diarrhea, Constipation Genitourinary: See HPI Male Genitourinary: No symptoms reported Musculoskeletal: No symptoms reported Skin: See HPI. denies: Rash Hematologic/Lymphatic: No symptoms reported Neurological/Psychological: See HPI, Headaches -: Yes All other systems reviewed and negative Physical Exam - Vital signs Vitals: Pulse Ox 99 06/09/20 10:55 - General General appearance: Appears well, Alert - HEENT Head: Normocephalic, Atraumatic Eyes: Normal Pupils: PERRL - Respiratory Respiratory status: No respiratory distress Breath sounds: Normal Notes: Tenderness with palpation to the left anterior axillary border. No deformity, ecchymosis, or crepitus. - Cardiovascular Rhythm: Regular Heart sounds: Normal auscultation Murmur: No - Abdominal Inspection: Healed incision - LLQ Distension: No distension Bowel sounds: Normal Tenderness: Nontender - Extremities General upper extremity: Normal inspection. No: Edema General lower extremity: Normal inspection. No: Edema - Neurological Neuro grossly intact: Yes Cognition: Normal Orientation: AAOx4 Roberta Coma Scale Eye Opening: Spontaneous Roberta Coma Scale Verbal: Oriented Edilia Coma Scale Motor: Obeys Commands Edilia Coma Scale Total: 15 Speech: Normal - Psychological Associated symptoms: Normal affect, Normal mood - Skin Skin Temperature: Warm Skin Moisture: Dry Skin Color: Normal Course - Re-evaluation Re-evalutation: 06/09/20 18:38 Patient still complains of left-sided chest wall pain is reproducible on palpation. - Vital Signs Vital signs: Temp Pulse Resp BP Pulse Ox 98.3 F 14 142/69 H 97 06/10/20 03:01 06/10/20 06:01 06/10/20 06:00 06/10/20 06:01 Patient is vital signs demonstrate respiratory rate is 17 blood pressure 171/83 and a pulse ox of 90. - Laboratory Result Diagrams: 06/09/20 11:30 06/09/20 11:30 Laboratory results interpreted by me: 06/09/20 06/09/20 06/09/20 11:30 11:30 11:30 WBC 3.0 L RBC 3.86 L Hgb 12.8 L Hct 37.7 L MCV 98 H RDW 15.5 H Plt Count 62 L Sodium 136.4 L Chloride 94 L Carbon Dioxide 33 H BUN 5 L Glucose 157 H Direct Bilirubin 0.5 H AST 428 H ALT 190 H Alkaline Phosphatase 130 H Acetaminophen < 10 L Serum Alcohol 06/09/20 11:30 WBC RBC Hgb Hct MCV RDW Plt Count Sodium Chloride Carbon Dioxide BUN Glucose Direct Bilirubin AST ALT Alkaline Phosphatase Acetaminophen Serum Alcohol 372 H* Laboratories are notable for serum alcohol of 372 and elevated liver function test and a glucose of 157 a low white count of 3.0 and a platelet count of 62. 06/10/20 07:36 Patient's repeat alcohol level last night was 222. - Diagnostic Test Radiology reviewed: Image reviewed, Reports reviewed Radiology results interpreted by me: 06/09/20 18:39 Chest X-Ray 06/09/20 11:47 IMPRESSION: No focal consolidation or effusion. Asymmetric pleural and parenchymal scarring/ consolidation at the right lung apex may represent infectious/ inflammatory process or possibly an underlying apical mass. Further evaluation with contrast-enhanced CT is recommended. Chest x-ray shows a right lung apex consolidation and scarring or tumor. Further evaluation is pending at this time. 06/10/20 07:37 Abdomen/Pelvis CT 06/09/20 00:00 IMPRESSION: 1. Severe hepatic steatosis. 2. Asymmetric right apical pleural and parenchymal scarring with associated healed right upper ribs, probably representing posttraumatic scarring. 3. No acute abnormality in the abdomen or pelvis. Chest X-Ray 06/09/20 11:47 IMPRESSION: No focal consolidation or effusion. Asymmetric pleural and parenchymal scarring/ consolidation at the right lung apex may represent infectious/ inflammatory process or possibly an underlying apical mass. Further evaluation with contrast-enhanced CT is recommended. Chest CT 06/09/20 14:16 IMPRESSION: 1. Severe hepatic steatosis. 2. Asymmetric right apical pleural and parenchymal scarring with associated healed right upper ribs, probably representing posttraumatic scarring. 3. No acute abnormality in the abdomen or pelvis. CT scan of chest shows a right apical pleural scarring and healed right upper ribs represent posttraumatic scarring. Abdomen and pelvis CT showed severe hepatic steatosis - EKG Interpretation by Me Additional EKG results interpreted by me: 06/09/20 18:42 Twelve-lead EKG shows normal sinus rhythm rate of 79 repolarization changes noted throughout the lateral chest leads and also in lead II of the limb leads. NM interval is prolonged. QRS within normal interval range QT interval within normal range normal axis no evidence for an acute VT. Consideration for pericarditis with re-pole changes noted. Of note these repull changes are not new dating back to as far back as 2016. - Transfer of Care Care transferred to following provider: Care transferred to Dr. Fong Discharge - Discharge Clinical Impression: Acute alcohol intoxication, Elevated liver function tests, Acute chest wall pain Condition: Fair Disposition: HOME, SELF-CARE Instructions: Chest Wall Pain ([facility]) Additional Instructions: Acute Alcohol Intoxication Your evaluation revealed very high levels of alcohol. You can from drinking a large amount of alcohol rapidly! Further, there's the risk of falls, traffic accidents, and fights. A high portion (about 50 percent) of the serious injuries seen in hospital emergency rooms are caused by alcohol. Alcohol overdosage is usually due to an underlying emotional or psychiatric problem. You may benefit from counselling. If "binge" drinking is an ongoing problem for you, or if you drink ANY AMOUNT of alcohol EVERY day, you most likely have a tendency to alcoholism. You should avoid alcohol totally. We can refer you for treatment. Persons with alcohol problems are often also prone to other addictions -- you should discuss any use of medications or drugs with the doctor. You should be watched at home for the next several hours by someone who has not been drinking. Get extra fluids for the next 24 hours. Call the doctor if there is repeated vomiting, increasing headache, decreasing level of alertness, or any other worsening. Prescriptions: Lorazepam [Ativan] 1 mg PO TID PRN #9 tablet PRN Reason: Anxiety/Agitation I personally performed the services described in the documentation, reviewed and edited the documentation which was dictated to the scribe in my presence, and it accurately records my words and actions.
[2020-06-10 17:21] VITALS: BP 144/72
== END 2020-06-10 17:21 | disposition home or self-care (01) ==
LOC: ER 10:55
DX: F10.129 Alcohol abuse with intoxication, unspecified (principal); R79.89 Other specified abnormal findings of blood chemistry; R07.89 Other chest pain; K76.0 Fatty (change of) liver, not elsewhere classified; R51 Headache; F17.210 Nicotine dependence, cigarettes, uncomplicated; I10 Essential (primary) hypertension; J44.9 Chronic obstructive pulmonary disease, unspecified
CPT/HCPCS: 93005; 96376; 99285; 96361; 96375; 96365; 96366 ×2; 96368; 36415; 82553; 80307 ×3; 82550; 83605; 83690; 83735; 85025; 85610; 85730; 80053; 81001; 84484; 71045; 71260; 74177; 93010; J2060 ×2; J3475; J3411; J3480; J7030; J7120; J3490